=== PATIENT | female | born 1970 | race Caucasian/White ===

== ENCOUNTER → 2020-11-06 | Outpatient (CLI) | payer SELFPAY ==
[2020-11-07 08:52] LABS: Stool Occult Bld Immuno 1 Negative (NEGATIVE)
== END | disposition home or self-care (01) ==
LOC: LAB 12:56 → LAB SHORT 12:56
PROVIDERS: Physician Assistant
DX: Z12.11 Encounter for screening for malignant neoplasm of colon (principal)
CPT/HCPCS: G0328

== ENCOUNTER 2022-11-20 14:32 | Emergency (ER) | payer SELFPAY ==
[~2022-11-20] VITALS: Ht 165.1 cm; Wt 79.4 kg
[2022-11-20 15:00] VITALS: BP 114/74
[2022-11-20] MEDS ORDERED: BUPROPION XL150 M1 PO (15:15)
[2022-11-20] MEDS ORDERED: ABILIFY MYCITE5 M2 PO (15:20)
== END 2022-11-20 15:37 | disposition home or self-care (01) ==
LOC: ER 14:32
DX: F43.10 Post-traumatic stress disorder, unspecified (principal); Z76.0 Encounter for issue of repeat prescription
CPT/HCPCS: 99281

== ENCOUNTER → 2024-01-07 | Outpatient (CLI) | payer OTHER ==
[~2024-01-07] MED LIST: ABILIFY MYCITE5 M2 PO; BUPROPION XL150 M1 PO; HYDRA25 PO; KETO10 PO; Prozac20 MG PO; QUETIAPINE FUM10011 PO
[2024-01-18 11:53] LABS: Stool Occult Bld Immuno 1 Negative (NEGATIVE)
== END ==
LOC: LAB 12:00 → LAB SHORT 12:00
PROVIDERS: Physician Assistant
DX: Z12.11 Encounter for screening for malignant neoplasm of colon (principal)
CPT/HCPCS: G0328

== ENCOUNTER 2024-09-29 14:49 | Observation (INO) | payer OTHER ==
[~2024-09-29] VITALS: Ht 165.1 cm; Wt 91.5 kg
[2024-09-29] MEDS ORDERED: REXULTI1 MG PO (15:05)
[2024-09-29] MEDS ORDERED: ESTRADIOL1 EAC2 PO (15:11)
[2024-09-29] MEDS ORDERED: PROP10 PO (15:12)
[2024-09-29] MEDS ORDERED: TOPI100 PO (15:12)
[2024-09-29 15:38] LABS: BASOPHILS ABSOLUTE AUTO 0.07 K/mm3 (0.00-0.23); BASOPHILS PERCENT AUTO 1 % (0-2); EOSINOPHILS ABSOLUTE AUTO 0.04 K/mm3 (0.00-0.68); EOSINOPHILS PERCENT AUTO 0 % (0-6); Hematocrit 44.4 % (33.0-51.0); Hemoglobin 15.6 g/dL (11.5-16.0); IMMATURE GRAN ABSOLUTE AUTO 0.05 K/mm3 (0.00-0.10); IMMATURE GRAN PERCENT AUTO 0 % (0-1); LYMPHOCYTES ABSOLUTE AUTO 2.10 K/mm3 (0.84-5.20); LYMPHOCYTES PERCENT AUTO 17 % (21-46); MONOCYTES ABSOLUTE AUTO 0.71 K/mm3 (0.16-1.47); MONOCYTES PERCENT AUTO 6 % (4-13); Mean Corpuscular HGB Conc 35.1 g/dL (31.5-36.5); Mean Corpuscular Volume 87 fL (80-100); NEUTROPHILS ABSOLUTE AUTO 9.71 K/mm3 (1.96-9.15); NEUTROPHILS PERCENT AUTO 77 % (41-73); NRBC ABSOLUTE 0.00 K/mm3 (0.00-0.02); NRBC Auto 0.0 /100 WBC (0.0-0.2); Platelet Count 224 K/mm3 (150-400); RDW Coefficient Variation 13.2 % (11.7-14.2); RDW Standard Deviation 42.7 fL (35.1-46.3)
[2024-09-29 16:12] LABS: Salicylate 8.8 mg/dL (2.8-20.0)
[2024-09-29 16:18] LABS: Alanine Aminotransfer (ALT/SGP 26 U/L (12-78); Albumin, Blood 4.1 g/dL (3.4-5.0); Albumin/Globulin Ratio 1.4 (0.8-1.8); Anion Gap 8 mmol/L (3-11); Aspartate Aminotrans (AST/SGOT 16 U/L (12-37); Bilirubin, Total 0.5 mg/dL (0.1-1.0); Blood Urea Nitrogen 10 mg/dL (8-24); CO2, Blood 21 mmol/L (21-32); Calcium, Blood 8.8 mg/dL (8.5-10.1); Chloride, Blood 110 mmol/L (98-108); Creatinine, Blood 0.76 mg/dL (0.40-1.00); Globulin, Blood 2.9 g/dL (2.2-4.0); Glucose, Blood 98 mg/dL (70-99); Potassium, Blood 3.6 mmol/L (3.5-5.5); Sodium, Blood 135 mmol/L (136-145); Total Protein, Blood 7.0 g/dL (6.4-8.2)
[2024-09-29 16:21] LABS: Acetaminophen, Random <2.0 ug/mL (10.0-30.0); Ethanol (Alcohol), Blood, Med <3 mg/dL
[2024-09-29 16:34] LABS: Source, Urine Voided
[2024-09-29 16:45] LABS: Bilirubin, Urine Neg (Neg); Color, Urine Yellow (P-Yellow); Glucose Qualitative, Urine Neg (Neg); Ketones, Urine 4+ (Neg); Leukocyte Esterase, Urine 1+ (Neg); Protein, Urine 2+ (Neg); Specific Gravity, Urine 1.025 (1.003-1.022); Urobilinogen, Urine 1+ (Normal)
[2024-09-29 17:04] LABS: U Amphetamine Screen Not Detected; U Barbituate Screen Not Detected; U Benzodiazapine Screen Not Detected; U Buprenorphine Screen Not Detected; U Cannabinoids Screen Not Detected; U Cocaine Screen Not Detected; U Methadone Screen Not Detected; U Methamphetamine Screen Not Detected; U Opiates Screen Not Detected; U Oxycodone Screen Not Detected; U Phencyclidine Screen Not Detected
[2024-09-29 17:05] LABS: Red Blood Cells, Urine 0-2 /hpf (0-2)
[2024-10-01 07:44] VITALS: BP 99/65
[2024-10-01] MEDS ORDERED: QUETIAPINE FUMA25 MG PO (12:44)
== END 2024-10-01 12:59 | disposition other institution (70) ==
LOC: ER 14:49 → EOR 14:50
PROVIDERS: ADMIT Emergency Medicine
DX: F31.2 Bipolar disorder, current episode manic severe with psychotic features (principal); F43.10 Post-traumatic stress disorder, unspecified; R00.1 Bradycardia, unspecified; I10 Essential (primary) hypertension; Z79.899 Other long term (current) drug therapy; Z90.710 Acquired absence of both cervix and uterus; Z98.891 History of uterine scar from previous surgery
CPT/HCPCS: 80053; 80320; 81001; 81025; 85025; 87077; 87086; 87186; 93005; 93010; 99285-25; A9270; G0378; G0480

== ENCOUNTER 2024-10-01 10:18 | Inpatient (IN) | payer OTHER ==
[~2024-10-01] VITALS: Ht 165.1 cm; Wt 89.0 kg
[~2024-10-01 10:18] MED LIST changes: +ESTRADIOL1 EAC2 PO; +PROP10 PO; +REXULTI1 MG PO; +TOPI100 PO
[2024-10-01] MEDS ORDERED: Aluminum Hydroxide 320MG/5ML 473 ML PO PRN (11:15)
[2024-10-01] MEDS ORDERED: DiphenhydrAMINE HCl 50 MG/ML 1ML Vial IM PRN (11:15)
[2024-10-01] MEDS ORDERED: Ondansetron 4 MG SoluTab MM PRN (11:20)
[2024-10-01] MEDS ORDERED: Haloperidol Lactate Inj. 5 MG/ML Injection IM PRN (11:20)
[2024-10-01] MEDS ORDERED: Polyethylene Glycol 3350 17 gm PO PRN (11:20)
[2024-10-01 12:35] VITALS: BP 97/66
[2024-10-01] MEDS ORDERED: QUETIAPINE FUMA25 MG PO (12:44)
[2024-10-01 12:53] VITALS: BP 97/66
--- NOTE | 2024-10-01 14:30 | NUR ---
ADMIT NOTE: PT ARRIVED TO [facility] FROM [facility] ER. PER PT, "I AM AFRAID SOMEONE IS FOLLOWIN ME AND MY FAMILY", "I'M NOT SURE HOW MANY PEOPLE ARE EFFECTED BY THIS, I'M AFRAID FOR MY LIFE". STATES, "I DON'T KNOW WHOSE REAL AND NOT REAL RIGHT NOW" WHEN ASKED IF SHE IS HAVING SUICIDAL THOUGHTS SHE STATES, "I DON'T KNOW, I THINK I COULD KILL MYSELF TO MAKE THE OUTSIDE THREAT AND SITUATION DISAPPEAR" SHE DENIES ANY ACTIVE SUICIDAL IDEATION, PLAN OR INTENT. STATES THAT SHE LIVES WITH HER SON AND HIS FAMILY. STATES THAT SHE DOESN'T WANT TO PUT HIM AND HER GRANDAUGHTER AT RISK. PT IS CALM AND COOPERATIVE WITH INTAKE. SHE WAS PROVIDED WITH LUNCH AND ATE APROX 50%. SHE WAS ORIENTED TO THE UNIT AND HER ROOM.
[2024-10-01 20:28] VITALS: BP 98/70
--- NOTE | 2024-10-02 03:06 | NUR ---
Patient out of bed pacing in the halls. Denies pain and doesn't want anything for anxiety. Affect is very flat with no eye contact. Offered sensory room or snack and patient declined those too. Back to bed after about 30 minutes. Will continue close monitoring every 15 minutes for safety and comfort.
--- NOTE | 2024-10-02 04:17 | NUR ---
SHIFT SUMMARY Patient has a very flat affect. when spoken to, her usual answer was "I don't know" She is alert to self and place, but very unsure of the situation. She asked several times yesterday and last night if she could go AMA. When it was time for HS meds, she pulled a list from her pocket and disagreed with the two meds that were to be given, but said,"it's ok. I'll be gone before morning". She denied SI,HI and AVTH during evening assessment. Will continiue close observation every 15 minutes for safety and comfort.
[2024-10-02] MEDS ORDERED: Multivitamins 1 Tab PO SCH (09:00)
--- NOTE | 2024-10-02 17:41 | NUR ---
SHIFT SUMMARY PT A/O X2 AND DOES NOT ANSWER MOST ASSESSMENT QUESTIONS. PT APPEARS VERY FRIGHTENED AND WITHDRAWN. WHEN ASKED IF SHE HAS ANY SI SHE ANSWERED "I DON'T KNOW. I JUST WANT TO MAKE MY THOUGHTS STOP." SHE AVOIDS EYE CONTACT AND REPORTS FEELING "VERY OVERWHELMED". SHE DOES NOT INTERACT WITH OTHERS OFTEN BUT SOMETIMES PACES IN THE PERDOMO. SHE IS MONITORED Q15 FOR SAFETY AND WELLNESS.
[2024-10-02 20:52] VITALS: BP 107/73
--- NOTE | 2024-10-03 00:06 | NUR ---
MID SHIFT SUMMARY PT PRESENT IN HALLWAY AT START OF SHIFT, STANDS AT NURSES STATION AND PACES THE HALLS. SHE IS SLIGHTLY MORE TALKATIVE THAN THE PREVIOUS NIGHT. SHE ANSWERS A LOT OF QUESTIONS WITH "I DON'T KNOW". SHE NODDED HER HEAD NO WHEN ASKED IF SHE WAS EXPERIENCING ANY SI, HI OR AVTH. PT STATES THAT SHE NEVER FEELS SAFE, INCLUDING IN BHU AND OUTSIDE OF U. SHE WAS COMPLIANT WITH EVENING MEDS, HAD EVENING SNACK AND SAT IN THE GROUP ROOM FOR A SHORT PERIOD OF TIME. SHE WENT TO HER ROOM AT APPROXIMATELY 2200, BUT HAS NOT BEEN SLEEPING. OFFERED PRN MED TO ASSIST WITH SLEEP, BUT PT REFUSES. Q15 MINUTE CHECKS TO CONTINUE PER UNIT PROTOCOL.
--- NOTE | 2024-10-03 04:09 | NUR ---
END OF SHIFT UPDATE PT HAS BEEN SLEEPING ON AND OFF THROUGHOUT THE NIGHT. SHE IS CURRENTLY AWAKE, SITTING QUIETLY ON THE EDGE OF HER BED. SHE DENIES ANY NEEDS AT THIS TIME. Q15 MINUTE CHECKS TO CONTINUE PER PT SAFETY.
[2024-10-03 09:16] VITALS: BP 102/70
--- NOTE | 2024-10-03 18:07 | NUR ---
SHIFT SUMMARY PT A/O X3; DENIES SI, HI, AVTH. SHE CONTINUES TO HAVE PARANOID DELUSIONS AND APPEARS FEARFUL. HOWEVER, SHE IS MORE TALKATIVE AND SEEMS TO BE GETTING MORE COMFORTABLE SPEAKING TO STAFF. PT BECAME DISTRESSED WHEN HER HOLD WAS DROPPED AND SHE WAS ASKED TO SIGN VOLUNTARY TODAY. SHE IS UNABLE TO SIGN THE VOLUNTARY FORM AT THIS TIME DUE TO IT CAUSING HER TOO MUCH ANXIETY. PT DECLINED NEED FOR PRN ANXIETY MEDICATION AND WENT TO LAY DOWN IN HER ROOM. SHE CONTINUES TO MONITORED Q15 FOR SAFETY AND WELLNESS.
[2024-10-03 20:42] VITALS: BP 97/66
--- NOTE | 2024-10-03 23:31 | NUR ---
MID SHIFT SUMMARY PT PRESENT IN HALLWAY AT START OF SHIFT SITTING IN CHAIR. SHE PACES THE HALLS AT TIMES. SHE DOES NOT SEEM TO INTERACT WITH ANY OF HER PEERS. SHE REPORTS HER MOOD "SO-SO" AND STATES THAT SHE DOES NOT FEEL SAFE HERE. SHE STATES "I DON'T KNOW WHAT I NEED. I'M TIRED OF FEELING THIS WAY." SHE STATES SHE DOES NOT EVEN FEEL SAFE TAKING A SHOWER HERE. I REMINDED PT THAT SHE IS SAFE AND THAT Q15 MINUTE ROUNDING IS DONE ON THE UNIT. INFORMED PT THAT SHE COULD TAKE A SHOWER AND I WOULD MAKE SURE NO ONE CAME IN, BUT PT DECLINED AT THIS TIME. SHE HAS BEEN SLIGHTLY MORE FORTHCOMING WITH HER THOUGHTS. SHE REPORTS THAT SHE DID NOT GET VERY MUCH SLEEP LAST NIGHT, THAT SHE HAS NIGHT TERRORS. DISCUSSED PRN OPTIONS. SHE HAD A SMALL EVENING SNACK, WAS COMPLIANT WITH MEDICATIONS. THE ONLY PRN MEDICATION SHE WAS WILLING TO TRY AT THIS TIME WAS MELATONIN. SHE WENT TO HER ROOM SHORTLY AFTER SNACK. Q15 MINUTE CHECKS TO CONTINUE PER PT SAFETY.
--- NOTE | 2024-10-04 04:39 | NUR ---
END OF SHIFT UPDATE PT HAS REMAINED IN BED THROUGHOUT THE NIGHT BUT HAS NOT SLEPT VERY MUCH (APPROXIMATELY 2-3 HOURS IN TOTAL). SHE WAS OFFERED PRN TRAZODONE BUT DECLINED. SHE IS CURRENTLY RESTING QUIETLY IN BED. NO OTHER ACUTE CHANGES. Q15 MINUTE CHECKS TO CONTINUE PER PT SAFETY.
[2024-10-04 08:48] LABS: CHOL/HDL RATIO 3.4; Cholesterol 128 mg/dL (50-200); HDL Cholesterol 38 mg/dL (>39); LDL/HDL RATIO 1.9; Low Density Lipoprotein Chol 72 mg/dL (0-110); Triglycerides 88 mg/dL (30-160); Very Low Density Lipoprot Chol 17 mg/dL (6-32)
[2024-10-04 09:26] VITALS: BP 93/67
--- NOTE | 2024-10-04 17:34 | NUR ---
SHIFT SUMMARY PT WAS RELUCTANT TO SHOWER THIS AM, BUT AGREED AND ACHIEVED ONE AFTER THIS RN AGREED TO STAND AT THE BATHROOM DOOR AND LEAVE THE DOOR TO HER ROOM OPEN. PT WAS GIVEN A CHANGE OF CLEAN CLOTHES. SHE PACED THE HALLWAYS MOST OF THE DAY. PT WAS COOPERATIVE ALL SCHEDULED MEDICATIONS EXCEPT THE MULTIVITAMIN THAT SHE HAS BEEN REFUSING EVERY DAY. SHE ATTENDED GROUPS AND WENT TO MEALS BUT NOT ALL SNACKS. T/O THE DAY PT STARTED TO APPEAR MORE ANXIOUS WITH A WORRIED LOOK ON HER FACE. OFFERED PT A HYDROXYZINE SEVERAL TIMES BUT PT REFUSED ALL OFFERS. SHE DID NOT RECIEVE ANY PRN MEDICATIONS. SHE DENIES SI/HI/AVH BUT STATES SHE DOES NOT FEEL COMFORTABLE AND SHE FEELS LIKE SHE CAN'T TRUST ANYONE.
[2024-10-04 20:14] VITALS: BP 106/79
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
--- NOTE | 2024-10-05 04:23 | NUR ---
END OF SHIFT UPDATE NO ACUTE CHANGES. PT HAS REMAINED IN BED THROUGHOUT THE NIGHT. SHE HAS BEEN SNORING ON AND OFF AND HAS AWAKENED A FEW TIMES, BUT THEN APPEARS TO GO BACK TO SLEEP. Q15 MINUTE CHECKS TO CONTINUE PER PT SAFETY.
--- NOTE | 2024-10-05 10:42 | NUR ---
SHIFT ASSESSMENT: PT WAS SITTING IN THE PERDOMO BY THE NURSES STATION AT THE BEGINNING OF SHIFT. SHE DENIED SI AND HI, SHE HAD A LONG SILENCE BEFORE DENYING AVH. PT REPORTED HER MOOD , "NUMB." HER AFFECT WAS GUARDED. SHE PACES SOMETIMES AND DOESN'T SEEM TO INTERACT WITH PEERS. SHE REFUSED HER MORNING MED WHICH WAS A MULTI-VITAMIN.
--- NOTE | 2024-10-05 18:06 | NUR ---
SHIFT SUMMARY ASSUMED PT CARE @1130. PT HAS BEEN QUIET FOR THE MOST PART. SHE RESPONDS WHEN ASKED QUESTIONS WITH SHORT ANSWERS. SHE REPORTS TO THIS RN THAT SHE IS FINE. SHE VISITED WITH SON AND MOTHER THIS AFTERNOON AND SEEMED IN BETTER SPIRITS. SHE DENIES ANY NEEDS AT THIS TIME. WILL CONTINUE POC.
[2024-10-05 19:14] VITALS: BP 110/68
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
[2024-10-06 08:57] VITALS: BP 93/83
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
--- NOTE | 2024-10-06 15:51 | NUR ---
PT'S ADULT KIDS CAME TO VISIT AND PT APPEARED TO BE CLEAR AND LINEAR THINKING. WANTING TO MAKE FINANCIAL DECISIONS INVOLVING THE AGREEMENT OF STAFF. HER REQUEST WAS DENIED. SHE APPEARED TO TAKE IT WELL AND WENT IN FOR SNACKS.
[2024-10-06 19:10] VITALS: BP 110/66
[2024-10-06] MEDS ORDERED: Divalproex Sodium 500 MG TABCR PO SCH (21:00)
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
[2024-10-07 08:13] VITALS: BP 99/66
--- NOTE | 2024-10-07 16:16 | NUR ---
SHIFT SUMMARY PT A/O X3; COOPERATIVE WITH CARE. SHE DENIES SI, HI, AVTH. PT'S AFFECT IS GUARDED AND HER RESPONSES ARE SHORT. SHE OFTEN PACES IN THE PERDOMO OR WILL COLOR IN THE GROUP ROOM. PT WAS STARTED ON PROZAC THIS SHIFT AND WAS AGREEABLE TO TAKE IT. HOWEVER, SHE DECLINED TO HAVE LABS DRAWN. SHE VISITED WITH HER MOTHER AND SON TODAY AND THE VISIT SEEMED TO GO WELL.
[2024-10-07 16:42] LABS: Alanine Aminotransfer (ALT/SGP 38.0 U/L (12-78); Albumin, Blood 4.0 g/dL (3.4-5.0); Albumin/Globulin Ratio 1.6 (0.8-1.8); Aspartate Aminotrans (AST/SGOT 32.0 U/L (12-37); Bilirubin, Direct 0.1 mg/dL (0.0-0.3); Bilirubin, Indirect 0.5 mg/dL (0.1-0.7); Bilirubin, Total 0.6 mg/dL (0.1-1.0); Globulin, Blood 2.5 g/dL (2.2-4.0); Total Protein, Blood 6.5 g/dL (6.4-8.2)
[2024-10-07 19:29] VITALS: BP 99/65
--- NOTE | 2024-10-08 04:52 | NUR ---
SHIFT SUMMARY: PATIENT WAS UP IN THE DAYROOM AT THE BEGINNING OF THE SHIFT, WATCHING A MOVIE. SHE GAVE SHORT ANSWERS TO BUSINESS INFORMATION CONSULTANT QUESTIONS. WHEN ASKED IF SHE WANTED TO BE LEFT ALONE FOR NOW, SHE STATED, "NOT NECESSARILY". SHE DENIED SUICIDAL IDEATION BUT ENDORSED FEELING "DEPRESSED, JUST THINKING ABOUT THINGS AND HOW I'D LIKE THEM TO BE". SHE DENIED THOUGHTS OF SELF HARMING AND A/V/T HALLUCINATIONS. DURING THE CONVERSATION, SHE ENDORSED "PEOPLE" WHO "SEEM NICE AT FIRST, BUT THEN YOU FIND OUT THEY ARE THERE TO SPY AND HURT YOU". SHE WAS ASKED IF SHE FEELS SAFE HERE, AND TOOK SOME TIME TO ANSWER, THEN REPLIED, "WELL, I SUPPOSE SO, BUT YOU NEVER KNOW". SHE PARTICIPATED IN SNACK AND CHOSE NOT TO WRITE ON HER WRAP UP GROUP PAPER, STATING, "YOU NEVER KNOW WHO WILL SEE IT". SHE WAS COMPLIANT WITH EVENING MEDICATIONS. SHE DID NOT WANT ANY PRN MEDICATIONS. SHE GOT UP A COUPLE OF TIMES DURING THE NIGHT AND CAME TO SIT BY THE NURSE'S STATION, BUT DID NOT WANT ANYTHING. SHE MOSTLY RESTED THROUGHOUT THE SHIFT WITH EYES CLOSED AND RESPIRATIONS CONFIRMED. CONTINUING TO MONITOR FOR SAFETY WITH Q15 MINUTE CHECKS.
[2024-10-08 08:55] VITALS: BP 91/62
--- NOTE | 2024-10-08 16:06 | NUR ---
SHIFT SUMMARY PT A/O X2; DENIES SI, HI, AVTH. PT IS WITHDRAWN AND HAS A BLUNTED/DEPRESSED AFFECT. SHE SPEAKS QUIETLY AND MAKES POOR EYE CONTACT. WHEN ASKED HOW SHE IS DOING THE PT SAID SHE IS "NUMB". PT WOULD NOT GIVE ANY ADDITIONAL ANSWERS WHEN ASKED QUESTIONS BY RN. PT SITTING IN OUTSIDE COURTYARD FOR THE MAJORITY OF THE SHIFT. SHE DOES NOT INTERACT WITH PEERS. SHE WAS ABLE TO TAKE A SHOWER WHEN A MHA "STOOD GUARD" OUTSIDE HER DOOR. SHE TAKES MEDICATIONS WILLINGLY BUT WILL NOT FILL OUT QUESTIONAIRE DURING COMMUNITY MEETING GROUP. SHE DOES NOT FILL OUT THE FORM DUE TO PARANOIA REGARDING WHO MAY READ HER ANSWERS.
[2024-10-08 19:23] VITALS: BP 102/78
--- NOTE | 2024-10-09 04:39 | NUR ---
SHIFT SUMMARY PATIENT SITTING OUT IN COURTYARD, APPEARS TO BE AVOIDING PEERS IN MILIEU. VERBALIZED THAT SHE FEELS "STUCK" SHE DOESN'T FEEL SAFE HERE AND DOESN'T FEEL SAFE BETWEEN HERE AND HOME. WHEN ASKED WHAT WE CAN DO TO HELP HER FEEL SAFE PATIENT BECOMING TEARFUL AND VERBALIZED THAT "THERE'S NOT A BIG ENOUGH ARMY". PATIENT DENIES SI, HI AND AVH. COOPERATIVE WITH MEDICATIONS. AT 0200 PATIENT AWAKE WITH NIGHT TERROR,0220 CONTINUE TO FEEL ANXIOUS AND ON JUAN ANTONIO ZYPREXA GIVEN FOR MASS 5. AT 0330 PATIENT BACK TO BED AND APPEARS TO BE SLEEPING RESP EVEN AND UNLABORED. CONTINUE TO MONITOR Q15MIN
[2024-10-09 09:23] VITALS: BP 96/50
--- NOTE | 2024-10-09 13:50 | NUR ---
SHIFT ASSESSMENT: PT WAS SITTING IN THE COURTYARD AT THE BEGINING OF SHIFT. SHE REPORTED THAT, "I NEED A BODY GUARD WHEN I LEAVE HERE TO KEEP ME SAFE." SHE DENIED SI, HI, AVH, ANXIETY AND PAIN. SHE DESCRIBED HER MOOD , "NUMB." HER AFFECT WAS CONGRUENT WITH STATED MOOD. SHE HAS ATTENDED BROUPS TODAY AND BEEN PRETTY MUCH ON THE FRINGE OF THE MILIEU.
[2024-10-09 19:09] VITALS: BP 100/55
--- NOTE | 2024-10-09 22:46 | NUR ---
SHIFT SUMMARY: PT A/OX4. PT IS KOBE BRIGHTER MOOD THAN LAST NIGHT. IS ABLE TO HOLD CONVERSATION AND IS ENGAGED IN THE SUBJECT. 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 SHE SAID HER VISIT WITH HER MOTHER WAS GOOD TODAY.DENIES, SI, HI AND AVH. DOES FEEL PARANOID AND MOSTLY SAFE WHILE SHE IS HERE. HAS BEEN IN THE GROUP ROOM COLORING AND INTEREACTING WITH OTHER PTS UNTIL BEDTIME. PT WANTS THE BEDROOM DOOR OPEN FOR FEELING SAFE. ALSO STATED " I NEED TO FACE WHATS RUNNING ME" AT TIMES SHE HEARS MUSIC IN THE BACK GROUND AND IT STARTS TO UPSET HER. DENIES MUSIC AT THIS TIME WHILE IN THE GROUP ROOM. WILL CONTINUE TO MONITOR.
--- NOTE | 2024-10-10 00:36 | NUR ---
Patient nervous about door being closed. She stated she has to see out and that she always sleeps with door open. Roommate keeps getting up and closing door. Ativan given for anxiety with promise that staff will open door to check on her every 15 minutes for safety.
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
[2024-10-10 07:33] VITALS: BP 112/68
--- NOTE | 2024-10-10 16:45 | NUR ---
SHIFT SUMMARY PT A/O X4; DENIES SI, HI, AVTH. SHE APPEARS SOMEWHAT ANXIOUS BUT SHE SEEMS TO BE INTERACTING/CONVERSING WITH STAFF MORE. SHE IS COOPERATIVE WITH MEDICATIONS. SHE STILL DECLINES TO PARTICIPATE IN MOST GROUPS, INCLUDING COMMUNITY CHECK IN DUE TO PARANOIA. SHE CONTINUES TO BE ROUNDED ON Q15 FOR SAFETY AND WELLNESS.
[2024-10-10 20:48] VITALS: BP 108/73
--- NOTE | 2024-10-11 04:26 | NUR ---
SHIFT SUMMARY PT PRESENT IN GROUP ROOM COLORING AT THE START OF MY SHIFT. SHE IS PLEASANT AND CALM. SHE DENIES ANY SI, HI OR AVTH. SHE CONTINUES TO HAVE PARANOID DELUSIONS ABOUT HER SAFETY AND STATES SHE DOESN'T KNOW HOW SHE WILL GET HOME SAFELY WITH THE PEOPLE THAT ARE AFTER HER. SHE REPORTS THAT SHE DID NOT SLEEP WELL LAST NIGHT AND REQUESTED AND RECEIVED PRN TRAZODONE. SHE ALSO REPORTED A HEADACHE AND REQUESTED AND RECEIVED PRN IBUPROFEN. SHE WAS COMPLIANT WITH HER SCHEDULED MEDS. SHE HAD EVENING SNACK, WENT BACK TO THE GROUP ROOM AND COLORED BEFORE GOING TO BED. SHE PRESENTED TO THE NURSES STATION AROUND MIDNIGHT AND WAS ANXIOUS. SHE RECIEVED PRN ATIVAN AND WENT BACK TO BED. Q15 MINUTE CHECKS TO CONTINUE PER PT SAFETY.
[2024-10-11 07:26] VITALS: BP 96/58
--- NOTE | 2024-10-11 17:40 | NUR ---
SHIFT SUMMARY PT A/O X4; PLEASANT AND COOPERATIVE WITH CARE. SHE DENIES SI, HI, AVTH. PT IS MORE INTACTIVE WITH STAFF AND SHE SEEMS MUCH MORE COMFORTABLE IN HER SURROUNDINGS. HER AFFECT IS MORE ANIMATED AND SHE HAS BEEN ACTIVE ON THE MILEU. SHE OFTEN COLORS IN THE DAY ROOM AND TALKS WITH HER PEERS. SHE HAD A GOOD VISIT TODAY WITH HER MOTHER AND SHE HAD LAPS DRAWN THIS AFTERNOON. PT ATTENDED ALL GROUPS AND MEALS THIS SHIFT.
[2024-10-11 19:39] VITALS: BP 99/62
--- NOTE | 2024-10-12 04:41 | NUR ---
SHIFT SUMMARY PT IN GROUP ROOM, COLORING AT START OF SHIFT. SHE IS MORE INTERACTIVE WITH PEERS AND STAFF THAN MY PREVIOUS SHIFT. SHE REPORTS FEELING "A LITTLE ANXIOUS AFTER THE DAY WE HAD HERE." SHE DECLINES NEEDING ANYTHING FOR ANXIETY. SHE DENIES ANY SI, HI OR AVTH. SHE CONTINUES TO HAVE PARANOID DELUSIONS AND STATES SHE WILL NEED A ESCORT TO GET HER HOME SAFELY SHE ALSO ASKED THIS RN TO NOT CHART WHAT IS DISCUSSED SHE IS WORRIED THAT "THE PEOPLE THAT ARE AFTER ME, CAN GAIN ACCESS TO RECORDS." SHE WAS COMPLIANT WITH EVENING MEDS, SHE REQUESTED AND RECEIVED TUMS FOR INDIGESTION AND TRAZODONE TO ASSIST WITH SLEEP. SHE HAD EVENING SNACK AND RETURNED TO GROUP ROOM TO COLOR BEFORE GOING TO BED. SHE PRESENTED TO THE NURSES STATION A COUPLE OF TIMES DURING THE NIGHT AND REPORTED FEELING ANXIOUS. SHE RECEIVED PRN ATIVAN AT APPROXIMATELY 0200 AND WENT BACK TO BED. Q15 MINUTE CHECKS TO CONTINUE PER PT SAFETY.
[2024-10-12 07:25] VITALS: BP 86/60
--- NOTE | 2024-10-12 17:19 | NUR ---
SHIFT SUMMARY PT DENIES SI/HI AND ALL HAULLUCINATIONS THIS SHIFT. SHE INTERACTED WITH STAFF WELL AND WAS ABLE TO STATE HER NEEDS. SHE RECIEVED TUMS PRN FOR C/O ACID REFLUX. NO OTHER PRN MEDS GIVEN. PT WAS SMILING AT TIMES THIS SHIFT. SHE ATTENDED GROUPS BUT OCCASIONALLY WOULD PUT HER HEAD DOWN ON THE TABLE DURING THEM. SHE HAD A VISIT WITH [facility]OHA[facility] IN THE EVENING THAT WENT WELL AND SHE SENT SOME OF HER ART HOME WITH HER. PT WAS COMPLIANT WITH ALL MEDICATIONS THIS SHIFT AND HER DEPAKOTE WAS INCREASED BY . SHE APPEARS TO BE SIGNIFICANTLY LESS PARANOID AND IS NOW OCCASIONALLY SMILING. POSSIBLE D/C HOME 10/17/24.
[2024-10-12 19:58] VITALS: BP 112/73
[2024-10-12] MEDS ORDERED: Divalproex Sodium 250 MG TABCR PO SCH (21:00)
--- NOTE | 2024-10-13 00:36 | NUR ---
MID SHIFT SUMMARY PT PRESENT IN MILIEU AT START OF SHIFT, ENJOYS COLORING AND HAS BEEN INTERACTING WITH STAFF AND PEERS. SHE DENIES ANY SI,HI, AVTH. SHE CONTINUES TO HAVE PARANOID DELUSIONS THAT PEOPLE ARE OUT TO GET HER. SHE STATES SHE FEELS SOMEWHAT SAFE HERE IN THE UNIT "BUT I CAN'T STAY HERE FOREVER." SHE HAD EVENING SNACK, REFUSED TO DO WRAP UP GROUP PAPERWORK. SHE WAS COMPLIANT WITH MEDS, AND RECEIVED PRN TUMS FOR HEARTBURN. SHE WENT TO BED AT APPROXIMATELY 2145 AND HAS REMAINED IN BED. Q15 MINUTE CHECKS TO CONTINUE PER PT SAFETY.
--- NOTE | 2024-10-13 05:15 | NUR ---
END OF SHIFT UPDATE PT PRESENTED TO NURSES STATION A LITTLE AFTER 0400, STATED "IT'S GETTING WEIRD IN THERE". (PT'S ROOMMATE WAS AWAKE AND STANDING NEXT TO HER BED,) PT STATES SHE IS UP FOR THE DAY. DENIES ANY NEEDS AT THIS TIME. SHE IS CURRENTLY SITTING BY NURSES STATION READING A BOOK. Q15 MINUTE CHECKS TO CONTINUE PER PT SAFETY.
[2024-10-13 08:43] VITALS: BP 107/75
--- NOTE | 2024-10-13 18:04 | NUR ---
SHIFT SUMMARY PT HAS HAD A GOOD SHIFT. SHE HAS BEEN UP AND INVOLVED IN THE MILIEU ALL SHIFT, MEALS/SNACK AND GROUP WERE ATTENDED. HER MOM VISITED THIS AFTERNOON AND THAT WAS GOOD. PT CONTINUES TO ENDORSE PARANOID THOUGHTS WITH CONCERNS OF RETURNING HOME AND THE SAFETY OF GETTING THERE. SHE IS FEARFUL THAT PEOPLE WILL BE OUT THERE TO FOLLOW HER HOME. SHE IS MED COMPLIANT, COOPERATIVE AND HAS RECEIVED Q15 MIN VISUAL SAFETY CHECKS THROUGHOUT THE SHIFT.
[2024-10-13 19:44] VITALS: BP 108/73
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
[2024-10-14 08:00] VITALS: BP 89/64
--- NOTE | 2024-10-14 16:40 | NUR ---
SHIFT SUMMARY PT HAS BEEN VERY INVOLVED IN THE MILIUE, COMPLIANT WITH MEDS, ENJOYS COLORING IN THE DAY ROOM. SHE PARTICIPATED IN THE GROUP THAT WAS DONE THE AND RN. SHE DENIES SI/HI BUT CONTINUES TO ENDORSE PARANOIA ABOUT HOW SHE WILL GET HOME SAFELY. SHE IS VERY PLEASANT AND COOPERATIVE. HER MOM VISITED TODAY AND THAT WAS PLEASANT FOR HER. PT HAS RECEIVED Q15 MIN VISUAL SAFETY CHECKS THROUGHOUT THE SHIFT
[2024-10-14 20:46] VITALS: BP 106/74
--- NOTE | 2024-10-15 04:33 | NUR ---
SHIFT SUMMARY: PATIENT WAS IN THE MILIEU COLORING AT THE BEGINNING OF THE SHIFT. SHE WAS PLEASANT AND COOPERATIVE WITH CARES. SHE PRESENTED FRIENDLY BUT WARY. SHE STATED, "I'M FEELING FAIRLY SAFE HERE, IT'S JUST THAT YOU NEVER KNOW." SHE DENIED SUICIDAL IDEATION, THOUGHTS OF SELF HARMING OR A/V/T HALLUCINATIONS. SHE PARTICIPATED IN SNACK AND WRAP UP GROUP, BUT DECLINED OFFER OF WRITING ON WRAP UP GROUP PAPER. SHE STATED, "YOU NEVER KNOW WHO IS GOING TO READ SOMETHING". SHE REMAINED UP FOR A TIME, DOING SOME MORE COLORING. SHE WAS COMPLIANT WITH EVENING MEDICATIONS. SHE WENT TO BED ABOUT 2200, BUT GOT UP A LITTLE LATER AND ASKED FOR SOMETHING "FOR ANXIETY, MY HEAD IS SPINNING". SHE WAS GIVEN A VISTARIL WITH GOOD EFFECT AND RESTED THE REMAINDER OF THE SHIFT, RESPIRATIONS CONFIRMED. CONTINUING TO MONITOR FOR SAFETY WITH Q15 MINUTE CHECKS.
[2024-10-15 07:43] VITALS: BP 94/65
--- NOTE | 2024-10-15 18:02 | NUR ---
SHIFT SUMMARY PT HAS HAD A GREAT SHIFT, HER MOM VISIT WHICH IS ALWAYS A PLUS FOR THE PT. PT CONTINUES TO SPEAK OF FEAR OF DRIVE TO HER HOME AND THOSE THAT MIGHT BE OUT TO GET HER. SHE WAS UP ALL SHIFT, INVOLVED WITH HER PEERS. SHE HAS RECEIVED HER Q15 MIN SAFETY CHECKS ALL SHIFT
--- NOTE | 2024-10-16 04:28 | NUR ---
SHIFT SUMMARY: PATIENT WAS IN THE DAYROOM COLORING AT THE BEGINNING OF THE SHIFT. SHE PRESENTED GUARDED BUT PLEASANT. SHE IS MORE POSITIVE REGARDING HER ATTITUDE TOWARD HER HOBBY OF COLORING AND NOW LIKES TO PRESENT THE PICTURES AND SHOW WHAT SHE HAS DONE. SHE STATED, "COLORING REALLY RELAXES ME. MOST OF THE TIME I CAN JUST FOCUS ON THAT WHEN I'M COLORING." SHE DENIES SUICIDAL IDEATION, THOUGHTS OF SELF HARMING AND A/V/T HALLUCINATIONS. SHE STATES, "I'M DOING OKAY EXCEPT THAT I DO NEED A FLEET OF CARS FOR WHEN I GO HOME. I DON'T WANT IT TO JUST BE MY SON IN A CAR WITH ME. I DID SOMETHING I SHOULDN'T HAVE DONE, I DON'T WANT TO TALK ABOUT IT, BUT I DID IT, AND THEY ARE AFTER ME. I MIGHT MAKE IT HOME SAFELY WITHOUT OTHER CARS TO PROTECT ME, BUT I THINK THEY KNOW I WILL BE LEAVING." SHE STATED THAT ONCE SHE GETS HOME, "I FEEL SAFE THERE. I WILL JUST STAY THERE." SHE STILL C/O ANXIETY AND PANIC AT TIMES, AND ASKS FOR PRN VISTARIL WHEN THAT HAPPENS, WHICH IS USUALLY QUITE EFFECTIVE. SHE PARTICIPATED IN SNACK AND WRAP UP GROUP, BUT AGAIN CHOSE NOT TO WRITE ON HER PAPER, "JUST TO BE SAFE". SHE COLORED FOR A TIME AFTER SNACK, AND WAS COMPLIANT WITH EVENING MEDICATIONS. SHE WENT TO BED SHORTLY AFTER AND WAS NOTED TO BE RESTING QUIETLY WITH EYES CLOSED AND RESPIRATIONS CONFIRMED FOR THE REMAINDER OF THE SHIFT. SHE HAS ADAPTED WELL TO A NEW ROOMMATE. CONTINUING TO MONITOR FOR SAFETY WITH Q15 MINUTE CHECKS.
[2024-10-16 07:47] VITALS: BP 97/48
--- NOTE | 2024-10-16 17:43 | NUR ---
SHIFT SUMMARY PT HAS HAD A GOOD DAY, UP ALL DAY AND INVOLVED IN THE [place]. SHE CONTINUES TO BE COMPLIANT WITH MEDICATIONS AND ALL GROUPS TODAY. CONTINUES TO ENDORSE PARANOIA THOUGHTS AND FEAR OF DRIVING FROM HERE TO HOME, WHICH IS HER SAFE PLACE. PT HAS RECEIVED Q15 MIN SAFETY CHECKS THIS SHIFT
[2024-10-16 20:50] VITALS: BP 110/52
--- NOTE | 2024-10-16 23:11 | NUR ---
MID SHIFT SUMMARY PT PRESENT IN [place]IE[place] AT START OF SHIFT. SHE IS PLEASANT AND COOPERATIVE. INTERACTS WITH STAFF AND PEERS. SHE DENIES ANY SI/HI OR AVTH. SHE CONTINUES TO BELIEVE THAT PEOPLE ARE OUT TO GET HER AND STATES SHE IS CONCERNED ABOUT HOW SHE WILL GET HOME TOMORROW IF DISCHARGED. SHE HAD EVENING SNACK AND WAS COMPLIANT WITH EVENING MEDICATIONS. SHE STAYED IN THE GROUP ROOM UNTIL AROUND 2200 AND WENT TO BED. Q15 MINUTE CHECKS TO CONTINUE PER PT SAFETY.
--- NOTE | 2024-10-17 04:09 | NUR ---
END OF SHIFT UPDATE PT PRESENTED TO NURSES STATION AROUND MIDNIGHT, ASKING WHAT TIME IT IS. STATES SHE IS HAVING DIFFICULTY SLEEPING AND REQUESTED AND RECEIVED PRN TRAZODONE AND WENT BACK TO BED. NO OTHER ACUTE CHANGES. Q15 MINUTE CHECKS TO CONTINUE PER PT SAFETY.
[2024-10-17 07:50] VITALS: BP 92/64
[2024-10-17] MEDS ORDERED: ABILIFY MYCITE10 M2 PO (12:15)
[2024-10-17] MEDS ORDERED: DIVA500ER PO (12:16)
[2024-10-17] MEDS ORDERED: Prozac20 MG PO (12:17)
[2024-10-17] MEDS ORDERED: OLAN10 PO (12:18)
--- NOTE | 2024-10-17 12:54 | NUR ---
MID SHIFT SUMMARY PT HAS RECEIVED HER PAPER WORK FOR D/C. SHE STILL STATES FEAR OF HER DRIVE HOME TODAY. HER SON AND TWO OF HIS FRIENDS ARE COMING TO GET HER. SHE HAS OTHERWISE DENIED SI/HI/AVH
--- NOTE | 2024-10-17 14:16 | NUR ---
13:26 PT WAS DISCHARGED WITH ALL OF HER BELONGINGS AND HER PRINTED DISCHARGE INSTRUCTIONS. SHE WAS STILL CONCERNED FOR HER SAFETY, SHE WAS TAKEN HOME BY HER SON AND SEVERAL OF HIS FRIENDS.
== END 2024-10-17 13:26 | disposition home or self-care (01) | DRG 885 ==
LOC: BHU 10:18
PROVIDERS: Psychiatry & Neurology Psychiatry; ADMIT Student in an Organized Health Care Education/Training Program
DX: F25.0 Schizoaffective disorder, bipolar type (principal); Z79.899 Other long term (current) drug therapy
CPT/HCPCS: 36415; 80061; 80076; 80164; 83036; A9270

== ENCOUNTER → 2024-12-27 | Outpatient (CLI) | payer OTHER ==
[~2024-12-27] MED LIST changes: +ABILIFY MYCITE10 M2 PO; +DIVA500ER PO; +OLAN10 PO; +QUETIAPINE FUMA25 MG PO
[2024-12-27 19:46] LABS: Bacterial Vaginosis PCR Negative (NEGATIVE); Candida glabrata-krusei, PCR NOT DETECTED (NOT DETECT)
[2024-12-27 19:47] LABS: Candida Group, PCR DETECTED (NOT DETECT)
== END ==
LOC: LAB SHORT 18:23 → LAB 18:23
DX: N94.89 Other specified conditions associated with female genital organs and menstrual cycle (principal)
CPT/HCPCS: 81515